=== PATIENT | male | born 1995 | race Caucasian/White ===

== ENCOUNTER 2021-09-14 08:38 | Outpatient (CLI) | payer OTHER ==
--- NOTE | 2021-09-14 09:30 | SLEEP CARE CONSULTATION ---
Information from patient questionnaire entered by Arlin Iqbal MA. I have reviewed and concur with the information entered by Arlin Iqbal MA. This document represents the service I personally performed and the decisions made by , Leticia Dean ARNP. History of Present Illness Service Date and Time: 09/14/2021 0838 Reason for Visit: New patient Chief Complaint: reports: Unrefreshed sleep, Snoring, Excessive daytime sleepiness, Observed pauses in breathing (slight one), Fatigue Date of Onset: 3-4 years ago Usual bedtime: 9 PM - 11 PM Time it takes to fall asleep: 3-10 minutes Snores at night: Yes Observed to quit breathing while asleep: Yes Sleeps alone due to snoring: Yes (once or twice was requested to sleep in another room, not normal practice) Number of times waking at night: 3-4 Reasons for waking at night: reports: Snoring (when younger more), Other (unknown reason; spouse waking me up because of snoring and noise) Toss, Turn, or Twitch while sleeping: Yes Recalls having dreams: Yes Usually gets out of bed at: [id number]; weekends [id number] Feels refreshed in the morning: No Morning headache: Yes (head tension rather than pain daily) Sleepy or fatigued during the day: Yes Ever fallen asleep while driving: Yes (lost time while driving, no accidents; some drowsy driving) Takes day naps: Yes (1 x a week) Dreams during day naps: No Prior sleep studies: No Additional HPI information: I had the pleasure of seeing JANEL SIMON today regarding the possibility of him having a sleep disorder. His current complaints are excessive daytime sleepiness, fatigue, snoring and unrefreshed sleep. He states that he has been snoring all his life but about 3-4 years ago it seemed to get louder. His will wake him up a few times during the night to turn over on side to reduce snoring. His recorded him snoring and he states is sounded different with some gasping like noise with snoring. His has said he will pause in snoring and then resume with a strange noise and then snore. He feels his memory is getting worse and that he has more difficulty processing things in his brain. He is working with his psychiatrist who treats him for anxiety and depression to be evaluated for possible attention deficit. He does not wake up feeling refreshed in the morning. He has had incidence of drowsy driving but no accidents. - Parasomnia Symptoms Ever been unable to move upon waking from sleep: No Walks in sleep: Yes (when younger) Talks in sleep: No Ever acted out dreams in sleep: Yes (when younger) Ever felt weak in the knees when startled or emotional: Yes Bothered by creepy, crawly, restless sensations in legs: No Problems with memory or concentration: Yes (memory getting bad, hard to process things) Subjective Initial [place] Sleepiness Scale score: 18 (2021) Past Medical History Past Medical History: reports: Anxiety, Depression, Other (Septoplasty April 2021) Social History The patient's occupation is a [employer]. Patient is and lives in [place]. Have you smoked in the past 12 months: No Alcohol use: Yes Alcohol amount and frequency: 1-2, 5x week Caffeine use: Yes Caffeine amount and frequency: 1-2 daily Family History Family history of sleep disordered breathing: Yes Family Hx Sleep Apnea: Mother: Snoring, Father: Snoring Allergies and Home Medications Drug allergies reviewed: Yes (NKDA) Home medication list reviewed: Yes Allergy and home medication list: Prozac Testosterone injection weekly Review of Systems Weight gain over past 5 years: 20 Psychiatric: reports: anxiety, depression Ear/Nose/Throat: reports: nasal congestion, other (septoplasty). denies: tonsillectomy, wisdom teeth removed Endocrine: reports: sluggishness Musculoskeletal: reports: joint pain, back pain Immunologic: reports: sneezing, allergies to food or environment (pet dander, plants/trees) Physical Exam Vital signs obtained and entered by: Penny Funes MA Blood Pressure: 124/78 Cuff size: regular Heart Rate: 64 O2 Saturation: 96 Height: 5 ft 9 in Weight: 195 lb 6.4 oz Body Mass Index: 28.8 BMI Classification: Overweight Neck circumference: 17.25 (inches) Mouth and throat: normal Soft palate: long Hard palate: normal Uvula: normal Uvula visualization: 50% Mallampati Class II Tongue: normal in size Tonsils: small Neck: normal w/o lymphadenopathy or thyromegaly Heart: regular rate and rhythm Lungs: clear bilaterally Impression and Plan 1. Suspected Obstructive Sleep Apnea-Hypopnea Syndrome, as suggested by a history of loud and irregular snoring, observed cessation of breath while asleep, morning headache, unrefreshed sleep, cognitive impairment, and excessive daytime sleepiness. Narrow oropharynx and obesity are common predisposing factors for obstructive sleep apnea-hypopnea syndrome. I recommend proceeding to polysomnography to confirm the diagnosis and to assess severity. If the patient has significant sleep disordered breathing, a manual CPAP titration study will also be performed to find the optimal treatment pressure. I informed the patient of what the sleep studies involve and after some discussion, obtained agreement to proceed. The pathophysiology of obstructive sleep apnea-hypopnea syndrome was discussed with the patient and health risks of cardiovascular and cerebrovascular disease if not treated. AAS brochure for obstructive sleep apnea-hypopnea syndrome given and reviewed. Risks of drowsy driving discussed in detail and patient advised to avoid long distance driving and to cloth covered helmet puller at the first sign of drowsiness. Patient agreed to plan. * Schedule polysomnography +- manual CPAP titration study and return in 1-2 weeks after the study to discuss result and initiate therapy. * Avoid long distance driving or driving when feeling sleepy. * Avoid alcohol, sedative and muscle relaxant around bedtime. * Attempt to lose weight. * Review instructions provided by trained office staff on how to prepare for the sleep study. * Return for follow-up after sleep study completed. Counseling Topics: Weight loss health impact Visit Type: In Office Time Spent with Patient (minutes): 36 Provider Statement: I spent 100% of the Face to Face Visit with the patient with greater than 50% spent counseling the patient and coordination of care.
[2021-09-14 09:31] VITALS: BP 124/78
== END 2021-09-14 08:39 | disposition home or self-care (01) ==
LOC: SC 08:38
PROVIDERS: ATTEND Nurse Practitioner Family
DX: R06.83 Snoring (principal); R06.81 Apnea, not elsewhere classified; R51.9 Headache, unspecified; G47.8 Other sleep disorders; R41.89 Other symptoms and signs involving cognitive functions and awareness; G47.10 Hypersomnia, unspecified
CPT/HCPCS: 99203; 99212

== ENCOUNTER 2021-10-02 14:59 | Outpatient (CLI) | payer OTHER ==
--- NOTE | 2021-10-02 17:13 | XRAY Report ---
PROCEDURE: Finger(s) LT INDICATIONS: L 3RD FINGER PX TECHNIQUE: PA hand and 2 views of the middle finger acquired. COMPARISON: None. FINDINGS: Bones: No acute fractures or dislocations. No suspicious bony lesions. Soft tissues: No suspicious soft tissue calcifications. Focal soft tissue edema is seen on dorsal a spect of the third proximal interphalangeal joint. IMPRESSION: No acute osseous abnormality. Soft tissue edema is seen surrounding the third proximal interphalangea l joint. If there is clinical concern or persistent symptoms, additional imaging such as repeat radio graphs or advanced imaging (e.g. CT, MRI) may be helpful for further evaluation. Reviewed by: Lucien Reyes MD on 10/02/2021 5:12 PM PST Approved by: Lucien Reyes MD on 10/02/2021 5:12 PM PST Station ID: [id number]
== END 2021-10-02 23:59 | disposition home or self-care (01) ==
LOC: DI.N 14:59
PROVIDERS: ATTEND Nurse Practitioner
DX: R93.6 Abnormal findings on diagnostic imaging of limbs (principal); R93.89 Abnormal findings on diagnostic imaging of other specified body structures

== ENCOUNTER 2022-01-11 16:38 | Emergency (ER) | payer OTHER ==
[2022-01-11 16:49] VITALS: BP 159/63
--- OUTSIDE RECORDS SUMMARY | 2022-01-11 17:10 | EXTERNAL MEDICAL SUMMARY RPT | Continuity of Care Document ---
:1995 Author Organization [facility] Address [address] [place] [address] Phone Care Team Providers Name Role Phone STUDENT ACTIVITIES DIRECTOR Unavailable Unavailable Allergies No information. Encounters No information. Medications No information. Problems date description facility 20220111 Pain in limb All 20220111 Pain in left foot All Results No information. Vital Signs date measurement value source 20220111 weight_standard 190 lb 20220111 weight_metric 86.18 kg 20220111 temperature_standard 99 F 20220111 temperature_metric 37.22 C 20220111 respiration_rate 14 /min 20220111 height_standard 69 in 20220111 height_metric 175.26 cm 20220111 heart_rate 97 /min 20220111 BP_systolic 120 mm[Hg] 20220111 BP_diastolic 79 mm[Hg] 20220111 BMI 28.16 kg/m2
--- NOTE | 2022-01-11 18:02 | XRAY Report ---
PROCEDURE: Foot 3 View LT INDICATIONS: Trauma, pain TECHNIQUE: 3 views of the foot were acquired. COMPARISON: None FINDINGS: Bones: Nondisplaced fracture through the proximal fifth metatarsal. Soft tissues: No tibiotalar joint effusion. Achilles tendon appears normal. IMPRESSION: Fifth metatarsal fracture. Reviewed by: Heidi Porter MD, PhD on 01/11/2022 6:01 PM PDT Approved by: Heidi Porter MD, PhD on 01/11/2022 6:01 PM PDT Station ID: [id number]
--- NOTE | 2022-01-11 18:26 | ED Physician Documentation ---
PD HPI LOWER EXT INJURY - Stated complaint Stated Complaint: LT FOOT INJ - Chief complaint Chief Complaint: Trauma Ext - History obtained from History obtained from: Patient - History of Present Illness PD HPI LOW EXT INJURY LOCATION: Left (Accidentally stepped in pothole earlier today and inverted his left foot with isolated left foot injury. No other injuries. Only pain is when he walks. No significant pain at rest. He already has crutches that fit him. He is active duty in the [employer].) Review of Systems Constitutional: reports: Reviewed and negative Eyes: reports: Reviewed and negative Ears: reports: Reviewed and negative Nose: reports: Reviewed and negative PD PAST MEDICAL HISTORY - Past Medical History Past Medical History: No - Allergies Allergies/Adverse Reactions: Allergies Allergy/AdvReac Type Severity Reaction Status Date / Time No Known Drug Allergies Allergy Verified 01/11/22 16:49 - Social History Does the pt smoke?: No Smoking Status: Never smoker PD ED PE NORMAL - Vitals Vital signs reviewed: Yes - General General: Alert and oriented X 3, No acute distress - Neck Neck: Supple, no meningeal sign, No bony TTP - Extremities Extremities: Other (Tender over the lateral left foot without swelling or decreased capillary refill or numbness. No ankle or proximal fibular tenderness.) - Neuro Neuro: Alert and oriented X 3, Normal speech Results - Vitals Vitals: Vital Signs - 24 hr 01/11/22 16:47 Temperature 36.9 C Heart Rate 69 Respiratory 16 Rate Blood Pressure 159/63 H O2 Saturation 98 Oxygen O2 Source Room air - Rads (name of study) Three-view x-ray of the left foot demonstrates a hairline fifth metatarsal fracture nondisplaced Radiology: EMP read contemporaneously Procedures - Splint (location) LLE Splint applied by: Tech Type of splint: Short leg, Posterior Other: Patient tolerated well, No complications, Neurovascular intact Departure - Departure Disposition: 01 Home, Self Care Clinical Impression: Closed nondisplaced fracture of fifth left metatarsal bone Qualifiers: Encounter type: initial encounter Qualified Code(s): S92.355A - Nondisplaced fracture of fifth metatarsal bone, left foot, initial encounter for closed fracture Condition: Good Record reviewed to determine appropriate education?: Yes Instructions: ED Fx Foot Comments: Do not walk or bear weight on the left foot until advised by orthopedics it is okay to do so. Keep the splint on and dry, do not remove it. Tylenol or ibuprofen as needed for pain. Call the [facility] on Friday to arrange for an appointment with the orthopedics office. Forms: Activity restrictions
== END 2022-01-11 19:20 | disposition home or self-care (01) ==
LOC: ED 16:38
DX: S92.355A Nondisplaced fracture of fifth metatarsal bone, left foot, initial encounter for closed fracture (principal); W17.2XXA Fall into hole, initial encounter
CPT/HCPCS: 99283

== ENCOUNTER 2022-09-19 13:32 | Outpatient (CLI) | payer OTHER ==
[2022-09-19 13:55] VITALS: BP 102/68
--- NOTE | 2022-09-19 13:55 | SLEEP CARE CONSULTATION ---
Information from patient questionnaire entered by Ney Johnson. I have reviewed and concur with the information entered by Ney Johnson. This document represents the service I personally performed and the decisions made by me, Leticia Dean ARNP. History of Present Illness Service Date and Time: 09/19/2022 1332 Reason for follow up: other (REORDER SLEEP STUDY) Prior sleep studies: No HPI additional information: I had the pleasure of seeing JANEL SIMON today regarding the possibility of him having a sleep disorder. His current complaints are unrefreshed sleep, snoring, excessive daytime sleepiness and fatigue. Patient has a history of anxiety, ADHD and depression. The patient tells me that he normally goes to bed around 9-11 pm, and it takes him approximately 5-10 minutes to fall asleep. He has been told that he snores loudly and irregularly at night. He has not been observed to stop breathing in his sleep. His bed partner can still sleep in the same bed. He can recall waking up on the average of 0-1 times during the night. Most of the time he wakes up because of bathroom or elbowing him to turn because of snoring. He has occasionally awakened for his own snoring. There is a lot of tossing and turning in his sleep. Generally he can recall having dreams. He usually wakes up at 05-0530 and does not feel refreshed. He usually does have a morning headache most days that resolves in about an hour. During the day he complains of feeling sleepy and fatigued. He has never fallen asleep while driving nor has any accident due to sleepiness. He usually does not take naps during the day. If he naps, upon falling asleep during the day he denies having vivid dreams. There is no somniloquy (sleep talking) or somnambulism (sleep walking). He has never experienced sleep paralysis, cataplexy, or symptoms of restless leg syndrome. He reports having impaired concentration during the day. Sleep Study - Results Prior sleep studies: No Subjective Initial [place] Sleepiness Scale score: 18 (2021) Current [place] Sleepiness Scale score: 13 (09/19/22) Allergies and Home Medications Drug allergies reviewed: Yes (NKDA) Home medication list reviewed: Yes (Adderall) Review of Systems Review of systems same as previous: No (ADHD) Physical Exam Vital signs obtained and entered by: NEY Ospina MA Blood Pressure: 102/68 (left arm) Cuff size: regular Heart Rate: 66 O2 Saturation: 98 Height: 5 ft 9 in Weight: 189 lb 6.4 oz Body Mass Index: 27.9 BMI Classification: Overweight Impression and Plan 1. Suspected Obstructive Sleep Apnea-Hypopnea Syndrome, as suggested by a history of loud and irregular snoring, unrefreshed sleep, cognitive impairment, and excessive daytime sleepiness. Patient was unable to get the test done before due to scheduling issues and being out of town. I still recommend proceeding to polysomnography to confirm the diagnosis and to assess severity. I obtained agreement to proceed. The pathophysiology of obstructive sleep apnea-hypopnea syndrome was discussed with the patient and health risks of cardiovascular and cerebrovascular disease if not treated. Risks of drowsy driving discussed in detail and patient advised to avoid long distance driving and to tub puller at the first sign of drowsiness. Patient agreed to plan. * Schedule polysomnography * Avoid long distance driving or driving when feeling sleepy. * Avoid alcohol, sedative and muscle relaxant around bedtime. * Attempt to lose weight. * Review instructions provided by trained office staff on how to prepare for the sleep study. * Return for follow-up after sleep study completed. Counseling Topics: Weight loss health impact Visit Type: In Office Time Spent with Patient (minutes): 21 Provider Statement: I spent 100% of the Face to Face Visit with the patient with greater than 50% spent counseling the patient and coordination of care.
== END 2022-09-19 13:33 | disposition home or self-care (01) ==
LOC: SC 13:32
PROVIDERS: ATTEND Nurse Practitioner Family
DX: R06.83 Snoring (principal); G47.8 Other sleep disorders; R51.9 Headache, unspecified; G47.10 Hypersomnia, unspecified; R53.83 Other fatigue; F90.9 Attention-deficit hyperactivity disorder, unspecified type; E66.3 Overweight; Z68.27 Body mass index [BMI] 27.0-27.9, adult
CPT/HCPCS: 99212; 99213

== ENCOUNTER 2024-01-28 10:21 | Outpatient (CLI) | payer OTHER ==
--- NOTE | 2024-01-28 10:46 | Sleep Patient Instructions ---
Sleep Center Visit Summary - Patient Visit Information Reason for Visit: Annual follow-up to reorder sleep study - Patient Instructions Instructions Attached: Sleep Study Home Monitor Additional Instructions: You will be completing a sleep study, either an in-lab polysomnography (PSG) or home sleep study (HST). You will follow-up in the sleep care office after the sleep study is completed to hear the results and talk about therapy, if needed. You will be called by our office staff to schedule this appointment, but you may contact us with any questions. - Clinic Information Contact: [facility] [address] [place] [address] [email or web address] T: [phone]
--- NOTE | 2024-01-28 10:49 | SLEEP CARE CONSULTATION ---
Information from patient questionnaire entered by Lesly Johnson. I have reviewed and concur with the information entered by Lesly Johnson. This document represents the service I personally performed and the decisions made by me, Leticia Dean ARNP. History of Present Illness Service Date and Time: 01/28/2024 1021 Reason for follow up: annual (LAST SEEN 09/19/22 PT NEED NEW SLEEP STUDY) Prior sleep studies: No HPI additional information: I had the pleasure of seeing JANEL SIMON today regarding the possibility of him having a sleep disorder. His current complaints are unrefreshed sleep, snoring, morning headaches, excessive daytime sleepiness and fatigue. He has a medical history of anxiety, ADHD and depression. He was last seen in 2022 and returns to the office to have the sleep study reordered. He was unable to get previous sleep study because of work restrictions. The patient tells me that he normally goes to bed around 10:30-11 pm, and it takes him approximately few minutes to fall asleep. He has been told that he snores loudly and irregularly at night. He has been observed to stop breathing in his sleep. His bed partner can still sleep in the same bed. He can recall waking up on the average of 1 times during the night. Most of the time he wakes up because of bathroom. He has occasionally awakened for his own snoring. There is a lot of tossing and turning in his sleep. Generally he can recall having dreams. He usually wakes up at 0530 for work 0800 on weekends and does not feel refreshed. He usually does have a morning headache. During the day he complains of feeling sleepy and fatigued. He has fallen asleep while driving and has gone out of the [place], no accident. He usually does not take naps during the day. If he naps, upon falling asleep during the day he denies having vivid dreams. There is no somniloquy (sleep talking) or somnambulism (sleep walking). He reports having impaired concentration during the day. Sleep Study - Results Prior sleep studies: No Subjective Initial [place] Sleepiness Scale score: 18 (2021) Current [place] Sleepiness Scale score: 18 (01/28/24) Allergies and Home Medications Known drug allergies: No Drug allergies reviewed: Yes Home medication list reviewed: Yes (as listed) Allergy and home medication list: Allergies No Known Drug Allergies Allergy (Verified 01/26/24 09:43) Home Medications Medication Instructions Recorded Confirmed Last Taken Type Dextroamphetamine/Amphetamine See Rx Instructions .ROUTE .COMPLEX 01/28/24 01/28/24 Unknown History [Adderall 15 mg Tablet] Finasteride See Rx Instructions .ROUTE .COMPLEX 01/28/24 01/28/24 Unknown History Venlafaxine ER [Effexor ER] See Rx Instructions .ROUTE .COMPLEX 01/28/24 01/28/24 Unknown History minoxidiL [Minoxidil] See Rx Instructions .ROUTE .COMPLEX 01/28/24 01/28/24 Unknown History Review of Systems Review of systems same as previous: Yes (NO CHANGE) Physical Exam Vital signs obtained and entered by: LESLY Ospina MA Blood Pressure: 142/75 (RIGHT ARM) Cuff size: regular Heart Rate: 97 O2 Saturation: 99 Height: 5 ft 9 in Weight: 197 lb 9.6 oz Body Mass Index: 29.2 BMI Classification: Overweight Impression and Plan 1. Suspected Obstructive Sleep Apnea-Hypopnea Syndrome, as suggested by a history of loud and irregular snoring, unrefreshed sleep, fatigue, morning headaches and excessive daytime sleepiness. He has a history of ADHD and depression. He returns to office to have sleep study re-ordered because he was unable to complete after last visit. I recommend proceeding to polysomnography to confirm the diagnosis and to assess severity. I obtained agreement to proceed. The pathophysiology of obstructive sleep apnea-hypopnea syndrome was discussed with the patient and health risks of cardiovascular and cerebrovascular disease if not treated. Risks of drowsy driving discussed in detail and patient advised to avoid long distance driving and to extractor puller at the first sign of drowsiness. Patient agreed to plan. 2. Overweight, unspecified. Currently patients BMI is 29.2. Obesity increases the risk of apnea, CPAP pressure requirements and overall health risks especially cardiovascular and diabetes. Thus patient is advised to lose weight. * Schedule polysomnography * Avoid long distance driving or driving when feeling sleepy. * Avoid alcohol, sedative and muscle relaxant around bedtime. * Attempt to lose weight. * Review instructions provided by trained office staff on how to prepare for the sleep study. * Return for follow-up after sleep study completed. Counseling Topics: Weight loss health impact Plan: Sleep study and followup Visit Type: In Office Time Spent with Patient (minutes): 20 Provider Statement: I spent 100% of the Face to Face Visit with the patient with greater than 50% spent counseling the patient and coordination of care.
[2024-01-28 10:53] VITALS: BP 142/75; O2SAT 99
== END 2024-01-28 10:22 | disposition home or self-care (01) ==
LOC: SC 10:21
PROVIDERS: ATTEND Nurse Practitioner Family
DX: R06.83 Snoring (principal); G47.8 Other sleep disorders; R53.83 Other fatigue; R51.9 Headache, unspecified; G47.10 Hypersomnia, unspecified; E66.3 Overweight; Z68.29 Body mass index [BMI] 29.0-29.9, adult
CPT/HCPCS: 99212; 99213

== ENCOUNTER 2024-02-09 13:00 | Outpatient (CLI) | payer OTHER ==
--- NOTE | 2024-02-09 15:00 | XRAY Report ---
PROCEDURE: Ankle 3+V LT INDICATIONS: ANKLE PAIN, LEFT TECHNIQUE: 3 views of the ankle were acquired. COMPARISON: Left foot radiograph on January 11, 2022. FINDINGS: Bones: No fractures or dislocations. Ankle mortise is normally aligned. No suspicious bony lesions . Subtle sclerotic lesion in the distal tibial metaphysis with narrow zone of transition likely repre sents a benign bone island. Soft tissues: No tibiotalar joint effusion. Achilles tendon appears normal. IMPRESSION: No acute bony abnormality. If there remains a high clinical concern for fracture, consider cross-sect ional imaging now. If pain persists, consider repeat x-ray in 10-14 days or cross-sectional imaging. Reviewed by: Ambreen Mansfield MD on 02/09/2024 2:58 PM PDT Approved by: Ambreen Mansfield MD on 02/09/2024 2:58 PM PDT Station ID: [id number]
--- NOTE | 2024-02-09 15:01 | XRAY Report ---
PROCEDURE: Tib/Fib LT INDICATIONS: ANKLE PAIN, LEFT TECHNIQUE: 2 views of the tibia and fibula were acquired. COMPARISON: Same day ankle radiograph. FINDINGS: Bones: No fractures or dislocations. Normal alignment. No suspicious bony lesions. Soft tissues: No suspicious soft tissue calcifications or masses. IMPRESSION: No acute bony abnormality. If pain persists with conservative management, consider repeat radiographs in 10-14 days or cross-sectional imaging. Please see same day ankle radiograph for additional findings. Reviewed by: Ambreen Mansfield MD on 02/09/2024 2:59 PM PDT Approved by: Ambreen Mansfield MD on 02/09/2024 2:59 PM PDT Station ID: [id number]
== END 2024-02-09 13:15 | disposition home or self-care (01) ==
LOC: DI.N 13:00
PROVIDERS: ATTEND Physician Assistant Medical
DX: M25.572 Pain in left ankle and joints of left foot (principal)

== ENCOUNTER 2024-02-18 12:20 | Outpatient (CLI) | payer OTHER | END 2024-02-18 12:21 | disposition home or self-care (01) | LOC: SC 12:20 | PROVIDERS: ATTEND Nurse Practitioner Family | DX: R09.02 Hypoxemia (principal) | CPT/HCPCS: 95806 ==

== ENCOUNTER 2024-03-15 14:09 | Outpatient (CLI) | payer OTHER ==
[2024-03-15 20:15] VITALS: BP 127/78; O2SAT 97
--- NOTE | 2024-03-15 20:15 | SLEEP CARE CONSULTATION ---
Information from patient questionnaire entered by Ney Johnson. I have reviewed and concur with the information entered by Ney Johnson. This document represents the service I personally performed and the decisions made by me, Kalpesh May MD, [facility]. History of Present Illness Service Date and Time: 03/15/2024 1409 Initial [place] Sleepiness Scale score: 18 (2021) Current [place] Sleepiness Scale score: 17 (03/15/24) Additional HPI information: Mr. Villela returned for follow up of the sleep study he had on 02/19/24. The test showed no significant sleep-disordered breathing with an AHI of 2.5/hr and carlos alberto SaO2 of 88%. During the test, the patient had 13 apneas (13 obstructive, 0 central, 0 mixed) and 5 hypopneas. The longest episode lasted 90.5 seconds. The few respiratory events occurred only during supine sleep (supine AHI was 2.9 and non-supine, 0.00). Hypoxemia was minimal, with the lowest oxygen saturation of 88 % and 0.4 minutes with SaO2 under 90%. Baseline oxygen saturation was normal (Average oxygen saturation was 96%). The patient was informed of these findings. I explained to him that test was negative for obstructive sleep apnea-hypopnea. However, the patient reports lying awake a good part of the night. Sleep Study - Results Type of Sleep Study: Home sleep study (COMPLETED 02/19/24) Prior sleep studies: No Allergies and Home Medications Drug allergies reviewed: Yes Home medication list reviewed: Yes Allergy and home medication list: Allergies No Known Drug Allergies Allergy (Verified 03/09/24 08:16) Review of Systems Review of systems same as previous: Yes (NO CHANGE) Physical Exam Vital signs obtained and entered by: NEY Ospina MA Blood Pressure: 127/78 (LEFT ARM) Cuff size: regular Heart Rate: 69 O2 Saturation: 97 Height: 5 ft 9 in Weight: 196 lb Body Mass Index: 28.9 BMI Classification: Overweight Impression and Plan IMPRESSION: 1. Suspected sleep apnea, based on loud snore, observed apneas, frequent awakenings, persistent fatigue, and excessive daytime sleepiness but not demonstrated by his recent home sleep apnea test (HSAT). Therefore, an in- laboratory polysomnography will be ordered to further evaluate his symptoms. The study was actually recommended initially, but the [place] put in him a restriction, can he was not able to come out to spend the night here. PLAN: 1. Schedule an in-laboratory polysomnography. 2. Return for follow up after the sleep study. Follow up with Sleep Care in: 1-2 months Visit Type: In Office Time Spent with Patient (minutes): 15 Provider Statement: I spent 100% of the Face to Face Visit with the patient with greater than 50% spent counseling the patient and coordination of care.
== END 2024-03-15 14:10 | disposition home or self-care (01) ==
LOC: SC 14:09
PROVIDERS: ATTEND Nurse Practitioner Family
DX: R06.83 Snoring (principal); R06.81 Apnea, not elsewhere classified; G47.10 Hypersomnia, unspecified; R53.83 Other fatigue; E66.3 Overweight; Z68.28 Body mass index [BMI] 28.0-28.9, adult
CPT/HCPCS: 99212